=== PATIENT | female | born 1950 | race Caucasian/White ===

== ENCOUNTER → 2016-07-11 | Outpatient (CLI) | payer OTHER | LOC: CIMAGING 12:03 | DX: M35.00 Sjogren syndrome, unspecified (principal); Z87.442 Personal history of urinary calculi | CPT/HCPCS: 74000-PO; 76770-PO ==

== ENCOUNTER → 2017-04-07 | Outpatient (CLI) | payer OTHER | LOC: FIMAGING 11:40 | PROVIDERS: ATTEND Family Medicine | DX: R91.1 Solitary pulmonary nodule (principal) ==